=== PATIENT | male | born 1945 | race Caucasian/White ===

== ENCOUNTER 2018-08-07 14:30 | Inpatient (IN) | payer OTHER ==
[~2018-08-07] VITALS: Ht 165.1 cm; Wt 77.2 kg
[~2018-08-07 14:30] MED LIST: ALLOPURINOL 30300 M1 PO; ASPIRIN325 PO; DIOVAN HCT 80-1 EACH PO; GLUCOPHAGE1000 MG PO; JANUVIA100 MG PO; PLAVIX 75 MG TA75 MG PO; PRILOSEC40 MG PO; PROCTOFOAM-HC F10 GM RC; TOPROL XL50 MG PO; ZETIA10 MG PO; ZOCOR 20 MG TAB20 M1 PO
[2018-08-07 15:00] VITALS: BP 129/47
[2018-08-07] MEDS ORDERED: ADULT ASPIRIN81 MG PO (15:05)
[2018-08-07] MEDS ORDERED: METFORMIN HCL500 MG PO (15:05)
[2018-08-07] MEDS ORDERED: LEVOXYL100 MCG PO (15:05)
[2018-08-07] MEDS ORDERED: PROTONIX40 M1 PO (15:05)
[2018-08-07] MEDS ORDERED: LOPRESSOR50 PO (15:05)
[2018-08-07 15:06] LABS: HEMATOCRIT 34.8 % (42.0-52.0); HEMOGLOBIN 11.4 gm/dL (14.0-18.0); MCH 28.7 pg (26.0-34.0); MCHC 32.7 g/dL (28.0-37.0); MCV 87.9 fL (80.0-100.0); MPV 9.1 fl. (7.2-11.1); NUCLEATED RBCS 0 /100WBC; PLATELET COUNT* 168 thou/uL (150-400); RBC 3.96 mil/uL (4.50-6.00); RDW-CV 15.5 % (10.5-14.5); WBC 8.4 thou/uL (4.0-11.0)
[2018-08-07] MEDS ORDERED: JANUVIA100 MG PO ×2 (15:06→15:08)
[2018-08-07] MEDS ORDERED: FISH OIL 1,001000 M2 PO (15:06)
[2018-08-07] MEDS ORDERED: ZETIA10 MG PO (15:06)
[2018-08-07] MEDS ORDERED: ZOLPIDEM TARTRA10 MG PO (15:09)
[2018-08-07] MEDS ORDERED: ZOCOR20 MG PO (15:09)
[2018-08-07] MEDS ORDERED: MELATONIN5 M1 PO (15:09)
[2018-08-07] MEDS ORDERED: COLACE100 MG PO (15:10)
[2018-08-07] MEDS ORDERED: HYDROCHLOROTHIA25 M2 PO (15:11)
[2018-08-07] MEDS ORDERED: ZOHYDRO ER10 M1 PO (15:11)
[2018-08-07] MEDS ORDERED: IMDUR 60 MG TAB60 M1 PO (15:12)
[2018-08-07 15:16] LABS: ANION GAP 3 mmol/L (7-16); BUN 28 mg/dL (7-18); CALCIUM 8.1 mg/dL (8.5-10.1); CHLORIDE 104 mmol/L (98-107); CO2 26 mmol/L (21-32); CREATININE 1.4 mg/dL (0.6-1.3); GLUCOSE 158 mg/dL (70-99); POTASSIUM 4.3 mmol/L (3.5-5.1); SODIUM 133 mmol/L (136-145)
[2018-08-07 15:17] LABS: APTT 26.1 Seconds (25.0-31.3); INR 1.1; PROTIME 11.1 Seconds (9.20-11.50)
[2018-08-07 15:23] LABS: ALBUMIN 3.1 g/dL (3.4-5.0); ALKALINE PHOSPHATASE 45 U/L (46-116); SGOT 12 U/L (15-37); SGPT 18 U/L (30-65); TOTAL BILIRUBIN 0.7 mg/dL (<0.1-1.0); TOTAL PROTEIN 6.3 g/dL (6.4-8.2); TROPONIN-I LEVEL <0.06 ng/mL (<0.06)
[2018-08-07 15:56] LABS: ABSOLUTE LYMPHOCYTES 1.1 thou/uL (0.8-5.3); ABSOLUTE MONOCYTES 0.3 thou/uL (0.0-1.2); ABSOLUTE NEUTROPHILS 7.1 thou/uL (1.6-8.1)
[2018-08-07 15:57] LABS: ANISOCYTOSIS Occasional; OVALOCYTES 2+; PLATELET ESTIMATE ADEQUATE
[2018-08-07 17:52] LABS: URINE BILIRUBIN NEGATIVE (Negative); URINE BLOOD NEGATIVE (Negative); URINE CLARITY CLEAR; URINE COLOR YELLOW; URINE GLUCOSE-RANDOM NEGATIVE (Negative); URINE KETONES TRACE (Negative); URINE LEUKOCYTES-REFLEX NEGATIVE (Negative); URINE NITRITE-REFLEX NEGATIVE (Negative); URINE PROTEIN NEGATIVE (Negative); URINE SPECIFIC GRAVITY >= 1.030 (1.005-1.030); URINE UROBILINOGEN 0.2 E.U./dl (0.2-1.0)
[2018-08-07 19:30] VITALS: BP 109/57; BP 113/61
[2018-08-07 19:31] VITALS: BP 120/61
[2018-08-07] MEDS ORDERED: UNICOMPLEX M TA1 TA1 PO (20:19)
[2018-08-07] MEDS ORDERED: TYLENOL PM EX-1 EACH PO (20:47)
[2018-08-08] VITALS: BP 108/45
[2018-08-08 04:00] VITALS: BP 107/60
[2018-08-08 08:28] VITALS: BP 122/61
[2018-08-08 09:42] LABS: CHOLESTEROL 79 mg/dL (<200); HDL CHOLESTEROL 33 mg/dL (>40); LDL CHOLESTEROL 35 mg/dL (<100); TC:HDL 2.4 Ratio (Not establshd); TRIGLYCERIDE 56 mg/dL (<150); VLDL 11 mg/dL (<40)
[2018-08-08 09:46] LABS: SERUM ASSESSMENT Clear
[2018-08-08 11:55] VITALS: BP 113/53
[2018-08-08 16:00] VITALS: BP 87/45
[2018-08-08 23:05] LABS: GLYCOHEMOGLOBIN (HGB A1C) 5.8 % (4.8-5.6)
--- NOTE | 2018-08-10 10:58 | EKG ---
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: : 1945 Requested By: Cassidy Arcos Order Number: [id number] MD: Donald Boston Measurements Intervals [place] Rate: 63 P: 45 [place]: 186 QRS: 18 QRSD: 157 T: 1 QT: 470 QTc: 482 Interpretive Statements Sinus rhythm Ventricular premature complex Atypical LBBB Borderline prolonged QT interval Compared to ECG 02/19/2011 07:55:06 Ventricular premature complex(es) now present Electronically Signed On 08-10-2018 10:58:03 FILM COMPOSER by Donald Boston [email or web address] <ELECTRONICALLY SIGNED> By: Donald Boston MD, FACC 08/10/18 1058 1445 1445 Donald Boston MD, [facility] /EPI
== END 2018-08-08 16:13 | disposition short-term general hospital (02) | DRG 64 ==
LOC: M.ERS 14:30 → M.2W 16:48 → M.TBA-ER 16:48 → M.2W 16:48
PROVIDERS: Personal Emergency Response Attendant; ADMIT Internal Medicine
DX: I63.542 Cerebral infarction due to unspecified occlusion or stenosis of left cerebellar artery (principal); I63.212 Cerebral infarction due to unspecified occlusion or stenosis of left vertebral artery; H81.399 Other peripheral vertigo, unspecified ear; I25.10 Atherosclerotic heart disease of native coronary artery without angina pectoris; E78.00 Pure hypercholesterolemia, unspecified; M10.9 Gout, unspecified; I12.9 Hypertensive chronic kidney disease with stage 1 through stage 4 chronic kidney disease, or unspecified chronic kidney disease; N18.3 Chronic kidney disease, stage 3 (moderate); E11.22 Type 2 diabetes mellitus with diabetic chronic kidney disease; E78.5 Hyperlipidemia, unspecified; Z88.8 Allergy status to other drugs, medicaments and biological substances; Z79.899 Other long term (current) drug therapy; Z79.82 Long term (current) use of aspirin